=== PATIENT | male | born 1980 | race Caucasian/White ===

== ENCOUNTER 2019-12-19 12:48 | Inpatient (IN) | payer BC ==
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
[2019-12-19 13:32] LABS: ABS Eosinophils 0.1 10^3/ul (0-0.6); ABS Lymphocytes 1.6 10^3/ul (1.0-4.8); ABS Monocytes 0.5 10^3/ul (0-0.8); ABS Neutrophils 4.4 10^3/ul (1.5-7.7); Eosinophil % 0.8 %; Hematocrit 44 % (42-52); Hemoglobin 15.3 g/dL (14.0-18.0); Lymphocyte % 23.9 %; Mean Corpuscular HGB Conc 35 g/dL (31-36); Mean Corpuscular Hemoglobin 30 pg (27-31); Mean Corpuscular Volume 85 fL (80-94); Mean Platelet Volume 8.4 fL (7.4-10.4); Platelet Count 238 10^3/uL (150-450); Red Blood Count 5.14 10^6 /uL (4.18-5.48); Red Cell Distribution Width 13 % (10-15); White Blood Count 6.6 10^3/uL (3.5-10.8)
[2019-12-19 13:35] LABS: Urine Appearance Clear; Urine Bilirubin Negative (Negative); Urine Blood Negative (Negative); Urine Color Yellow; Urine Glucose Negative (Negative); Urine Ketones Negative (Negative); Urine Nitrite Negative (Negative); Urine Protein Negative (Negative); Urine Specific Gravity 1.025 (1.010-1.030); Urine Urobilinogen Negative (Negative)
--- NOTE | 2019-12-19 13:45 | ED ---
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 Patient reports he has Hx of anxiety, OCD, and benign brain tumor and was recently [facility] to the [facility] in [place]. He had some medication changes and was doing well and back at work until yesterday. He has not seen therapist in a few weeks. He states he thought about self harm today by smashing his head, which has never happened before. The patient rates the pain 3/10 in severity. Symptoms aggravated by nothing. Symptoms alleviated by nothing. - History Of Current Complaint Chief Complaint: EDMentalHealth Time Seen by Provider: 12/19/19 13:00 Hx Obtained From: Patient Onset/Duration: Still Present Character: Anxious - and panicked with plan to hurt self Aggravating Factor(s): Nothing Alleviating Factor(s): Nothing - Allergies/Home Medications Allergies/Adverse Reactions: Allergies Allergy/AdvReac Type Severity Reaction Status Date / Time No Known Allergies Allergy Verified 12/19/19 21:12 Home Medications: Home Medications Fluvoxamine (NF) [Luvox (NF)] 100 mg PO BID 12/19/19 [History Confirmed 12/19/19 ] Gabapentin [Neurontin] 200 mg PO BID 12/19/19 [History Confirmed 12/19/19] PMH/Surg Hx/FS Hx/Imm Hx Neurological History: Reports: Hx Headaches Psychiatric History: Reports: Hx Anxiety, Hx Panic Disorder Infectious Disease History: No Infectious Disease History: Denies: Traveled Outside the [place] in Last 30 Days - Family History Known Family History: Positive: Other - Brother has Schizophrenia - Social History Alcohol Use: None Substance Use Type: Reports: None Smoking Status (MU): Never Smoked Tobacco Review of Systems Positive: Headache Positive: Anxious, Other - Panic attack All Other Systems Reviewed And Are Negative: Yes Physical Exam - Summary Physical Exam Summary: Constitutional: Well-developed, Well-nourished, Alert. (-) Distressed Skin: Warm, Dry HENT: Normocephalic; Atraumatic Eyes: Conjunctiva normal Neck: Musculoskeletal ROM normal neck. (-) JVD, (-) Stridor, (-) Tracheal deviation Cardio: Rhythm regular, rate normal, Heart sounds normal; Intact distal pulses; The pedal pulses are 2+ and symmetric. Radial pulses are 2+ and symmetric. (-) Murmur Pulmonary/Chest wall: Effort normal. (-) Respiratory distress, (-) Wheezes, (-) Rales Abd: Soft, (-) tenderness, (-) Distension, (-) Guarding, (-) Rebound Musculoskeletal: (-) Edema Lymph: (-) Cervical adenopathy Neuro: Alert, Oriented x3 Psych: appears anxious, tearful. Triage Information Reviewed: Yes Vital Signs On Initial Exam: Initial Vitals Temp Pulse Resp BP Pulse Ox 98.3 F 95 20 148/124 97 12/19/19 12:51 12/19/19 12:51 12/19/19 12:51 12/19/19 12:51 12/19/19 12:51 Vital Signs Reviewed: Yes Procedures - Sedation Patient Received Moderate/Deep Sedation with Procedure: No Diagnostics - Vital Signs Vital Signs Temp Pulse Resp BP Pulse Ox 12/19/19 12:51 98.3 F 95 20 148/124 97 - Laboratory Lab Results: Lab Results 12/19/19 12/19/19 Range/Units 13:16 13:24 WBC 6.6 (3.5-10.8) 10^3/uL RBC 5.14 (4.18-5.48) 10^6 /uL Hgb 15.3 (14.0-18.0) g/dL Hct 44 (42-52) % MCV 85 (80-94) fL MCH 30 (27-31) pg MCHC 35 (31-36) g/dL RDW 13 (10-15) % Plt Count 238 (150-450) 10^3/uL MPV 8.4 (7.4-10.4) fL Neut % (Auto) 67.7 % Lymph % (Auto) 23.9 % Co[place] % (Auto) 6.9 % Eos % (Auto) 0.8 % Baso % (Auto) 0.7 % Absolute Neuts (auto) 4.4 (1.5-7.7) 10^3/ul Absolute Lymphs (auto) 1.6 (1.0-4.8) 10^3/ul Absolute Monos (auto) 0.5 (0-0.8) 10^3/ul Absolute Eos (auto) 0.1 (0-0.6) 10^3/ul Absolute Basos (auto) 0.0 (0-0.2) 10^3/ul Absolute Nucleated RBC 0.0 10^3/ul Nucleated RBC % 0.0 Urine Color Yellow Urine Appearance Clear Urine pH 7.0 (5-9) Ur Specific [place] 1.025 (1.010-1.030) Urine Protein Negative (Negative) Urine Ketones Negative (Negative) Urine Blood Negative (Negative) Urine Nitrate Negative (Negative) Urine Bilirubin Negative (Negative) Urine Urobilinogen Negative (Negative) Ur Leukocyte Esterase Negative (Negative) Urine Glucose Negative (Negative) Result Diagrams: 12/19/19 13:24 12/19/19 13:24 Lab Statement: Any lab studies that have been ordered have been reviewed, and results considered in the medical decision making process. Course/Dx - Course Course Of Treatment: 58 year old M presenting to [facility] complains of anxiety, panic attacks, and a SINGH from crying since earlier today 12/19/2019. Physical exam findings: Psych: appears anxious, tearful. Bloodwork results with no significant abnormalities except for H BUN/Creatinine Ratio, H Glucose, H Total Bilirubin. In the ED course, the patient was given a MHE. We discussed patient care with Dr. Lucas at 1707 who recommended admission. The patient will be admitted to the psych unit. - Differential Dx/Clinical Impression Provider Diagnosis: Major depressive disorder - Physician Notifications Discussed Care Of Patient With: Christiano Lucas Time Discussed With Above Provider: 17:07 Instructed by Provider To: Admit As Inpatient Discharge ED - Sign-Out/Discharge Documenting (check all that apply): Patient Departure - admit - Discharge Plan Condition: Stable Disposition: PSYCHIATRIC FACILITY-[facility] - Billing Disposition and Condition Condition: STABLE Disposition: Psychiatric Facility [facility] - Attestation Statements Document Initiated by Scribe: Yes Documenting Scribe: Jose Maria Soto Provider For Whom Scribe is Documenting (Include Credential): Eric Rosales DO Scribe Attestation: IJose Maria scribed for Eric Rosales DO on 12/20/19 at 0724. Scribe Documentation Reviewed: Yes Provider Attestation: The documentation as recorded by the scribeJose Maria accurately reflects the service I personally performed and the decisions made by me, Eric Rosales DO Status of Scribe Document: Viewed
[2019-12-19 13:48] LABS: ALT 32 U/L (7-52); AST 22 U/L (13-39); Albumin 4.9 g/dL (3.2-5.2); Albumin/Globulin Ratio 1.7 (1-3); Alkaline Phosphatase 77 U/L (34-104); Anion Gap 9 mmol/L (2-11); BUN/Creatinine Ratio 22.4 (8-20); Blood Urea Nitrogen 24 mg/dL (6-24); CO2 Carbon Dioxide 26 mmol/L (22-32); Calcium 9.8 mg/dL (8.6-10.3); Chloride 105 mmol/L (101-111); EGFR African American 93.1 (>60); EGFR Non-African American 76.9 (>60); Globulin 2.9 g/dL (2-4); Glucose 114 mg/dL (70-100); Potassium 3.9 mmol/L (3.5-5.0); Sodium 140 mmol/L (135-145); Total Protein 7.8 g/dL (6.4-8.9)
[2019-12-19 13:49] LABS: Urine Benzodiazepine Screen None Detected (None Detect); Urine Opiates Screen None Detected (None Detect)
[2019-12-19 14:19] LABS: Acetaminophen < 15 mcg/mL; Alcohol < 10 mg/dL (<10); Salicylate < 2.50 mg/dL (<30)
[2019-12-19 14:34] LABS: TSH (Thyroid Stimulating Horm) 1.05 mcIU/mL (0.34-5.60)
[2019-12-19] MEDS ORDERED: Acetaminophen TAB* 325 MG PO ONE (16:55)
[2019-12-19] MEDS ORDERED: Al Hydrox/Mg Hydrox/Simet LIQ* 30 ML UDC PO PRN (21:21)
[2019-12-19] MEDS: FLUVOXAMINE 100 MG PO SCH (21:39)
[2019-12-20 07:47] LABS: HDL Cholesterol 40.3 mg/dL
[2019-12-20] MEDS: Vitamin THERAPEUTIC TAB PO SCH (08:46)
[2019-12-20] MEDS: Acetaminophen TAB* 325 MG PO PRN (08:46)
[2019-12-20] MEDS: FLUVOXAMINE 100 MG PO SCH (08:47)
[2019-12-20] MEDS: clonazePAM TAB(*) 0.5 MG PO PRN (12:24)
--- NOTE | 2019-12-20 18:02 | HP ---
INITIAL PSYCHIATRIC EVALUATION: DATE OF ADMISSION: TOTAL TIME SPENT FOR THIS EVALUATION: 60 minutes. CHIEF COMPLAINT: "I am having severe anxiety and I am suicidal." HISTORY OF PRESENT ILLNESS: The patient is a 39-year-old male who came voluntarily to [facility] Emergency Department for psychiatric evaluation and medication management. The pat ient reported that he has a history of anxiety since the age of 10. The patient stated that he was s tabilized on fluvoxamine 100 mg p.o. b.i.d. for at least 20 years. The patient stated that shortly a fter his brother was diagnosed with schizophrenia, paranoid type, about 1 week before this presentati on, he suddenly became anxious because he thought that it is genetic and maybe one day he is also goi ng to be diagnosed with schizophrenia. The patient reported severely depressed mood, poor appetite, low energy, crying spells, hopelessness, helplessness, and worthlessness. The patient stated that I just cannot continue like this anymore. I am having severe anxiety with panic attacks. The patient stated that lately he has noticed increase in isolative behavior. He is afraid to even go out to the [facility]. He denied any history of psychosis, paranoia, or ritualistic behavior. The patient did no t exhibit any paranoid delusion or persecutory delusion. The patient stated that lately he has notic ed that he worries excessively and that he has been diagnosed in the past with obsessive-compulsive d isorder. He reported some rituals, which include excessive washing of his hands and excessive tooth brushing. 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 He deny any hist ory of physical, verbal, or emotional abuse. PAST PSYCHIATRIC HISTORY: The patient was also diagnosed with anxiety around the age of 10. As a re sult, he was home schooled and lately he noticed becoming more and more depressed. The patient also stated that he was diagnosed with benign tumor around the age of 11. They found hemangioma around th e left frontal lobe. The patient stated that he has used many SSRIs in the past including Prozac whic h he said he used for about a year, after which it was discontinued because he was not getting jeanine l effect, it was not beneficial, later it was switched over to Paxil. The patient reported that he d iscontinued it because he had problem with libido. The patient stated that he has used fluvoxamine f or at least 20 years and it was effective, but for some reason his physician discontinued it and was started on Effexor which he used for 2 years, but did not work well, so he had to go back to fluvoxam ine because it takes care of his diagnoses including obsessive- compulsive disorder, panic disorder w ith agoraphobia, and depression. The patient denied past history of suicide attempt. He said he has 3 guns and effort was made to contact Christina, telephone number [phone]. She has been notified t o keep this gun under lock and lewis. The patient denied past history of self mutilation but endorse ramya jasso with anger management. The patient stated that he has been following up with An Thorpe. PAST MEDICAL HISTORY: The patient stated that he goes to [facility] for physical issues. He has a hist ory of hemangioma. He denies any history of asthma, diabetes, hypertension, hypothyroidism, or expos ures to HIV, TB, or hepatitis. PAST SURGICAL HISTORY: The patient denies. CURRENT MEDICATIONS ON ADMISSION: Include: 1. Gabapentin 200 mg p.o. b.i.d. 2. Fluvoxamine 100 mg p.o. b.i.d. ALLERGIES: The patient denied any known drug allergies. FAMILY HISTORY: Significant for schizophrenia paranoid type. The patient denied family history of s uicide or drugs. LEGAL HISTORY: The patient around the age of 15 was charged with disorderly conduct, but there was n o group home time. Currently, the patient is not on parole or probation. SUBSTANCE ABUSE HISTORY: The patient started drinking alcohol at the age of 10. He said that he dran k so much until the age of 22 when he suddenly stopped, now he drinks 1 or 2 bottles of beer socially per week and the last time he drank alcohol was 1 month ago. The patient reported 1 episode of nancy kout. Denied any withdrawal symptoms or delirium tremens. The CAGE screen at this time is 0/4. The patient has experimented with other drugs in the past by cocaine only 2 times around the age of 15, mushroom only 1 time around the age of 15. He said he has tried marijuana but it caused anxiety, so he stopped it. The patient currently is not smoking cigarette. He denies intravenous use of any oth er illicit drugs including cocaine, heroin, PCP, LSD, crystal meth, bath salts, K2, and pink. The p atient reported that he has never been to any substance abuse rehabilitation program. SOCIAL HISTORY: The patient was born and raised in [place]. He has a brother who is 42 years old. The brother is currently admitted at [facility] in [place]. The patient went to [employer]. He graduated 12th grade in 1998. 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 He has 2 children ages 10 an d 12. He has a girlfriend with whom he has a 2-year-old daughter. REVIEW OF SYSTEMS: All systems were reviewed. They were all negative except for that discussed und er HPI. PHYSICAL EXAMINATION As of the time of this evaluation, vitals: Temperature is 97.6, pulse is 67, respiratory rate is 14, oxygen saturation is 99. DIAGNOSTIC STUDIES/LAB DATA: The patient's lab results: CBC with differential is within normal ran ge. Comprehensive metabolic panel is within normal range except for elevated BUN/creatinine ratio wh ich is 22.4. The glucose is also slightly elevated at 114. Total bilirubin is 1.30. Urine drug scr een is negative. The urinalysis is negative for leukocytes and nitrites. MENTAL STATUS EXAM: The patient is alert and oriented to person, place, situation, and time. He is appropriately dressed and maintain fair eye contact. His speech is spontaneous with low rate and vol ume. Thought process is linear, coherent, and goal-directed. He denied current suicidal or homicida l ideation, but before this admission, the patient stated that he was feeling suicidal with plan to b shilo his head against the wall. The patient's insight and judgment are fair. Cognitively, both recen t and remote memory are intact. There is no evidence of tangentiality or circumstantiality. Mood, h e described as severely depressed and anxious. Affect is blunted. The patient was actually exhibiti ng crying spell during this evaluation. There was no evidence of abnormal involuntary movement. Imp ulse control is fair. Language is intact. Gait is stable. Attention and concentration are fair. PSYCHIATRIC DIAGNOSES: 1. Major depressive disorder, recurrent, severe, without psychotic features. 2. Panic disorder with agoraphobia. 3. Obsessive compulsive disorder. SUBSTANCE ABUSE DIAGNOSIS AT THIS TIME: None. MEDICAL DIAGNOSIS: History of hemangioma. ASSESSMENT: The patient is a 39-year-old male who presented to [facility] ER fo r psychiatric evaluation and medication management. The patient is severely depressed and experienci ng severe anxiety, suicidal on presentation with plan to bash his head against the wall. PLAN: The patient will be admitted to [facility] BSU. He will be monitored on a daily ba sis. The patient will be started on BuSpar 5 mg p.o. b.i.d. for anxiety, Klonopin 0.5 mg p.o. b.i.d. p.r.n. for anxiety, fluvoxamine will be increased from 100 mg to 150 p.o. b.i.d. for mood and anxiet y, gabapentin will be discontinued because the patient reported that he tends to feel severely sedate d on gabapentin. Risk and benefit of this medication have been discussed with the patient and the windy kearns indicated understanding. The patient has been counseled to notify staff if he feels suicidal o r homicidal. The patient is encouraged to go to groups. The problem list for this patient includes anxiety, risk of suicide, depression, poor impulse control , and risk of substance abuse. This problem list will be treated with both medication management and psychotherapy. [id number]/[facility] #: [id number]
[2019-12-20] MEDS: busPIRone TAB* 5 MG PO SCH (21:04)
[2019-12-21] MEDS ORDERED: FluvoxaMINE (NF) 50 MG TAB PO SCH (09:00)
[2019-12-21] MEDS: busPIRone TAB* 5 MG PO SCH ×2 (09:07→21:08)
[2019-12-21] MEDS: Vitamin THERAPEUTIC TAB PO SCH (09:08)
[2019-12-21] MEDS: Acetaminophen TAB* 325 MG PO PRN (09:56)
[2019-12-21] MEDS: FluvoxaMINE (NF) 50 MG TAB PO SCH (21:09)
[2019-12-22] MEDS: Vitamin THERAPEUTIC TAB PO SCH (08:59)
[2019-12-22] MEDS: clonazePAM TAB(*) 0.5 MG PO PRN (08:59)
[2019-12-22] MEDS: FluvoxaMINE (NF) 50 MG TAB PO SCH ×2 (09:00→20:44)
[2019-12-22] MEDS: busPIRone TAB* 5 MG PO SCH (09:00)
--- NOTE | 2019-12-22 13:40 | PN ---
Subjective - Subjective Date of Service: 12/22/19 Service Type: 11082 Hosp care 25 min moderate complexity Subjective: Lan is met after a group. He presents as dysphoric and makes intermittent eye contact. He reiterates the history from the H&P and adds that mornings are a hard time for him regarding anxiety. He feels pain in his chest and stomach that almost make him cry. Toward evening, the feeling in his chest and stomach subsides and he develops headaches due to anxiety and worry. He sometimes wonders, "Why me?" and "What if something is really wrong?" An example of this is when there was information about HIV on television, he became concerned that he had contracted it although he had no engaged in any practices that would put him at risk. He stated he felt better when he got the negative results. Objective - General Observations Appearance: Neat Appears Stated Age: Yes Stature: Overweight Posture: WNL Eye Contact: Intermittent Behavior/Activity: Slowed - Interaction Observations Attitude Towards Examiner: Cooperative, Anxious Stated Mood: Dysphoric Affect: Blunted Speech Pattern/Tone: Clear, Appropriate, Quiet Volume Thought Process: Coherent, Goal Directed Perception: WNL Thought Content: Preoccupation/Ruminations, Obsessional, Depressive, Self- Deprecatory Thought Process: Lethality: Passive Wish Hallucination Type: None Delusion Type: None - Cognitive Function Orientation: A&O x 4 Level of Consciousness: Awake, Alert, Appropriate Cognition: Impaired Cognition, Impaired Fund of Knowledge Estimated Intelligence: Normal Insight: WNL Judgment Within Normal Limits: No Ability to Make Reasonable Decisions: Moderately Impaired - Medication Compliance Cooperative with Inpatient Medication Regimen: Yes - Group Participation Participates in Group Activities: Yes Assessment - Assessment Merits Inpatient Hospitalization: For Immediate Safety Inpatient DSM-V Dx: F33.1 Clinical Impression: Lan is a 39-year-old man who is diagnosed with major depressive disorder and comes to the hospital due to suicidal thoughts that relate to insurmountable anxiety and panic, some attacks which last hours. BSU: Problem List - Patient Problems (1) Major depressive disorder, recurrent episode, moderate degree Current Visit: Yes Status: Acute Code(s): F33.1 - MAJOR DEPRESSIVE DISORDER , RECURRENT, MODERATE SNOMED Code(s): 493857597 Plan - Plan Treatment Plan: Name: LAN ERWIN Birthdate: 1980 [id number] Continue Lan's medications as they are (Luvox 150 mg BID) but discontinue Buspar. Start Risperdal 0.5 mg and clonidine 0.1 mg. He has tried Abilify in the past, but he got akathesia. In the meantime, he got slightly better. Clonidine is being started to reduce panic, nightmares, and anxiety. Continued Medication Management: Different Medication Medications: Current Medications Acetaminophen (Tylenol Tab*) 650 mg PO Q4H PRN PRN Reason: PAIN or TEMP > 101 F Last Admin: 12/21/19 09:56 Dose: 650 mg Al Hydrox/Mg Hydrox/Simethicone (Maalox Plus*) 30 ml PO Q4H PRN PRN Reason: INDIGESTION Clonazepam (Klonopin Tab(*)) 0.5 mg PO TID [facility] Clonidine HCl (Catapres Tab*) 0.1 mg PO BEDTIME [facility] Fluvoxamine Maleate (Fluvoxamine (Nf)) 150 mg PO BID [facility] Last Admin: 12/22/19 09:00 Dose: 150 mg Multivitamins (Theragran Tab*) 1 tab PO DAILY [facility] Last Admin: 12/22/19 08:59 Dose: 1 tab Risperidone (Risperdal) 0.5 mg PO BEDTIME [facility] - Discharge Plan Discharge Plan: Outpatient Follow Up
[2019-12-22] MEDS: clonazePAM TAB(*) 0.5 MG PO SCH ×2 (14:20→20:48)
--- NOTE | 2019-12-22 14:42 | HP ---
HISTORY AND PHYSICAL: DATE OF ADMISSION: 12/19/19 ADDENDUM: PHYSICAL EXAMINATION Please refer to ED note. [id number]/[facility] #: [id number]
[2019-12-22] MEDS ORDERED: cloNIDine TAB* 0.1 MG PO SCH (21:00)
[2019-12-23] MEDS: FluvoxaMINE (NF) 50 MG TAB PO SCH ×2 (08:36→21:12)
[2019-12-23] MEDS: Vitamin THERAPEUTIC TAB PO SCH (08:36)
[2019-12-23] MEDS: clonazePAM TAB(*) 0.5 MG PO SCH ×3 (08:36→21:11)
--- NOTE | 2019-12-23 16:01 | PN ---
Subjective - Subjective Date of Service: 12/23/19 Service Type: 65077 Hosp care 35 min high complexity Subjective: Lan reported feeling "drunk" last night with the addition of clonidine and risperidone. We will discontinue the clonidine. Much time was spent with Lan discussing his appreciation of Klonopin's utility and also the possibilities of tolerance and dependence. He is using it only once per day because of that. We talk about anxiety and how physical sensations that are unusual cause anxiety for him. He was given the challenge to simulate a wobbly sensation or some kind of mild discomfort and discover ways that he can combat low level anxiety. He says his depressed feelings are reduced in the hospital and he is feeling increased motivation. He has been going to all the groups. Objective - General Observations Appearance: Neat Appears Stated Age: Yes Stature: Overweight Posture: WNL Eye Contact: Average Behavior/Activity: Slowed - Interaction Observations Stated Mood: Dysphoric, Anxious Affect: Blunted Speech Pattern/Tone: Clear, Appropriate, Quiet Volume Thought Process: Coherent, Goal Directed Perception: WNL Thought Content: Preoccupation/Ruminations, Self-Deprecatory Thought Process: Lethality: Passive Wish Hallucination Type: None Delusion Type: None - Cognitive Function Orientation: A&O x 4 Level of Consciousness: Awake, Alert, Appropriate Cognition: Impaired Attention/Concentration Estimated Intelligence: Normal Insight: WNL Judgment Within Normal Limits: No Ability to Make Reasonable Decisions: Mildly Impaired - Medication Compliance Cooperative with Inpatient Medication Regimen: Yes - Group Participation Participates in Group Activities: Yes Assessment - Assessment Merits Inpatient Hospitalization: For Immediate Safety Inpatient DSM-V Dx: F33.1 Clinical Impression: Lan is a 39-year-old man who is diagnosed with major depressive disorder and comes to the hospital due to suicidal thoughts that relate to insurmountable anxiety and panic, some attacks which last hours. BSU: Problem List - Patient Problems (1) Major depressive disorder, recurrent episode, moderate degree Current Visit: Yes Status: Acute Code(s): F33.1 - MAJOR DEPRESSIVE DISORDER , RECURRENT, MODERATE SNOMED Code(s): 169038573 Plan - Plan Treatment Plan: Name: LAN ERWIN Birthdate: 1980 [id number] Continue Lan's medications as they are (Luvox 150 mg BID) but discontinue Buspar. Start Risperdal 0.5 mg and clonidine 0.1 mg. He has tried Abilify in the past, but he got akathesia. In the meantime, he got slightly better. Clonidine is being started to reduce panic, nightmares, and anxiety. 12/23/2019 Discontinue clonidine. Continue medications as they are. Encourage exploration of anxious ideas and coping strategies. Encourage current good practices. Medications: Current Medications Acetaminophen (Tylenol Tab*) 650 mg PO Q4H PRN PRN Reason: PAIN or TEMP > 101 F Last Admin: 12/21/19 09:56 Dose: 650 mg Al Hydrox/Mg Hydrox/Simethicone (Maalox Plus*) 30 ml PO Q4H PRN PRN Reason: INDIGESTION Clonazepam (Klonopin Tab(*)) 0.5 mg PO TID [facility] Last Admin: 12/23/19 14:04 Dose: Not Given Fluvoxamine Maleate (Fluvoxamine (Nf)) 150 mg PO BID [facility] Last Admin: 12/23/19 08:36 Dose: 150 mg Multivitamins (Theragran Tab*) 1 tab PO DAILY [facility] Last Admin: 12/23/19 08:36 Dose: 1 tab Risperidone (Risperdal) 0.5 mg PO BEDTIME [facility] Last Admin: 12/22/19 20:43 Dose: 0.5 mg - Discharge Plan Discharge Plan: Outpatient Follow Up
[2019-12-24] MEDS: Vitamin THERAPEUTIC TAB PO SCH (08:26)
[2019-12-24] MEDS: FluvoxaMINE (NF) 50 MG TAB PO SCH ×2 (08:27→20:40)
[2019-12-24] MEDS: clonazePAM TAB(*) 0.5 MG PO SCH ×3 (08:27→20:39)
--- NOTE | 2019-12-24 11:24 | PN ---
BSU: Group Therapy Note - Service Type Service Type: 02393 Group Psychotherapy - Cognitive Behavioral Group Therapy ( CBT):Patient was attentive and participatory in CBT programming this morning, and remained in good behavioral control. Patient expressed positive insights regarding relevant treatment interventions and goals.
--- NOTE | 2019-12-24 16:50 | PN ---
Subjective - Subjective Date of Service: 12/24/19 Service Type: 56187 Hosp care 25 min moderate complexity Subjective: Lan talks about feeling better although he acknowledges that he worries that his better feelings will revert to the way he used to feel--the crushing chest and abdominal pain. He discusses how he seeks reassurances from his medical providers when he feels anxious, as his anxiety frequently manifests itself somatically. He sees that he seeks control over his anxiety rather than tolerate it or calm himself. He is showing increased smiles and relaxation. He is looking forward to seeing his family on Sunday and is finding the groups helpful. Objective - General Observations Appearance: Neat Appears Stated Age: Yes Stature: Overweight Posture: WNL Eye Contact: Average Behavior/Activity: WNL - Interaction Observations Attitude Towards Examiner: Cooperative, Anxious Stated Mood: Dysphoric, Anxious Affect: Blunted Speech Pattern/Tone: Clear, Appropriate, Normal Volume Thought Process: Coherent, Goal Directed Perception: WNL Thought Content: Preoccupation/Ruminations, Obsessional Hallucination Type: None Delusion Type: None - Cognitive Function Orientation: A&O x 4 Level of Consciousness: Awake, Alert, Appropriate Cognition: Impaired Attention/Concentration Estimated Intelligence: Normal Insight: WNL Judgment Within Normal Limits: No Ability to Make Reasonable Decisions: Moderately Impaired - Medication Compliance Cooperative with Inpatient Medication Regimen: Yes - Group Participation Participates in Group Activities: Yes Assessment - Assessment Merits Inpatient Hospitalization: For Immediate Safety, For Stabilization Inpatient DSM-V Dx: F33.1 Clinical Impression: Lan is a 39-year-old man who is diagnosed with major depressive disorder and comes to the hospital due to suicidal thoughts that relate to insurmountable anxiety and panic, some attacks which last hours. BSU: Problem List - Patient Problems (1) Major depressive disorder, recurrent episode, moderate degree Current Visit: Yes Status: Acute Code(s): F33.1 - MAJOR DEPRESSIVE DISORDER , RECURRENT, MODERATE SNOMED Code(s): 865643765 Plan - Plan Treatment Plan: Name: LAN ERWIN Birthdate: 1980 [id number] Continue Lan's medications as they are (Luvox 150 mg BID) but discontinue Buspar. Start Risperdal 0.5 mg and clonidine 0.1 mg. He has tried Abilify in the past, but he got akathesia. In the meantime, he got slightly better. Clonidine is being started to reduce panic, nightmares, and anxiety. 12/23/2019 Discontinue clonidine. Continue medications as they are. Encourage exploration of anxious ideas and coping strategies. Encourage current good practices. 12/24/2019 Continue medications. Continue group therapy and further therapeutic interventions. Medications: Current Medications Acetaminophen (Tylenol Tab*) 650 mg PO Q4H PRN PRN Reason: PAIN or TEMP > 101 F Last Admin: 12/21/19 09:56 Dose: 650 mg Al Hydrox/Mg Hydrox/Simethicone (Maalox Plus*) 30 ml PO Q4H PRN PRN Reason: INDIGESTION Clonazepam (Klonopin Tab(*)) 0.5 mg PO TID [facility] Last Admin: 12/24/19 14:53 Dose: Not Given Fluvoxamine Maleate (Fluvoxamine (Nf)) 150 mg PO BID [facility] Last Admin: 12/24/19 08:27 Dose: 150 mg Multivitamins (Theragran Tab*) 1 tab PO DAILY [facility] Last Admin: 12/24/19 08:26 Dose: 1 tab Risperidone (Risperdal) 0.5 mg PO BEDTIME [facility] Last Admin: 12/23/19 21:13 Dose: 0.5 mg
[2019-12-25] MEDS: Vitamin THERAPEUTIC TAB PO SCH (08:50)
[2019-12-25] MEDS: FluvoxaMINE (NF) 50 MG TAB PO SCH ×2 (08:50→21:18)
[2019-12-25] MEDS: clonazePAM TAB(*) 0.5 MG PO SCH ×3 (08:50→21:18)
--- NOTE | 2019-12-25 23:18 | PN ---
Subjective - Subjective Date of Service: 12/25/19 Service Type: 37532 Hosp care 15 min low complexity Subjective: Lan discusses that Klonopin TID is too much. He much prefers taking 0.5 mg in the morning with the option to take it at bedtime. He states he's had it prescribed before and has thrown away the extra as he didn't use it. He says that taking Klonopin in the morning helps him feel good throughout the day. When he takes it at bedtime, he sleeps better and has no crushing feeling in the morning. We discuss that it needs to be used as a tool to help him manage his anxiety rather than relying on it to make the anxiety go away. Objective - General Observations Appearance: Neat Stature: Overweight Posture: WNL Eye Contact: Intermittent Behavior/Activity: WNL - Interaction Observations Attitude Towards Examiner: Cooperative, Anxious Stated Mood: Dysphoric Affect: Blunted Speech Pattern/Tone: Clear, Appropriate, Normal Volume Thought Process: Coherent Perception: WNL Thought Content: Preoccupation/Ruminations, Self-Deprecatory Hallucination Type: None Delusion Type: None - Cognitive Function Orientation: A&O x 4 Level of Consciousness: Awake, Alert, Appropriate Cognition: WNL Estimated Intelligence: Normal Insight: WNL Judgment Within Normal Limits: Yes - Medication Compliance Cooperative with Inpatient Medication Regimen: Yes - Group Participation Participates in Group Activities: Yes Assessment - Assessment Merits Inpatient Hospitalization: For Immediate Safety Inpatient DSM-V Dx: F33.1 Clinical Impression: Lan is a 39-year-old man who is diagnosed with major depressive disorder and comes to the hospital due to suicidal thoughts that relate to insurmountable anxiety and panic, some attacks which last hours. He is progressing well with medication support and the use of group and milieu therapy. BSU: Problem List - Patient Problems (1) Major depressive disorder, recurrent episode, moderate degree Current Visit: Yes Status: Acute Code(s): F33.1 - MAJOR DEPRESSIVE DISORDER , RECURRENT, MODERATE SNOMED Code(s): [id number] Plan - Plan Treatment Plan: Name: LAN ERWIN Birthdate: 1980 [id number] Continue Lan's medications as they are (Luvox 150 mg BID) but discontinue Buspar. Start Risperdal 0.5 mg and clonidine 0.1 mg. He has tried Abilify in the past, but he got akathesia. In the meantime, he got slightly better. Clonidine is being started to reduce panic, nightmares, and anxiety. 12/23/2019 Discontinue clonidine. Continue medications as they are. Encourage exploration of anxious ideas and coping strategies. Encourage current good practices. 12/24/2019 Continue medications. Continue group therapy and further therapeutic interventions. 12/25/2019 Prepare for discharge tomorrow. Encourage continued work on anxiety and depression as well as forming positive alliances. Medications: Current Medications Acetaminophen (Tylenol Tab*) 650 mg PO Q4H PRN PRN Reason: PAIN or TEMP > 101 F Last Admin: 12/21/19 09:56 Dose: 650 mg Al Hydrox/Mg Hydrox/Simethicone (Maalox Plus*) 30 ml PO Q4H PRN PRN Reason: INDIGESTION Clonazepam (Klonopin Tab(*)) 0.5 mg PO TID [facility] Last Admin: 12/25/19 21:18 Dose: 0.5 mg Fluvoxamine Maleate (Fluvoxamine (Nf)) 150 mg PO BID [facility] Last Admin: 12/25/19 21:18 Dose: 150 mg Multivitamins (Theragran Tab*) 1 tab PO DAILY [facility] Last Admin: 12/25/19 08:50 Dose: 1 tab Risperidone (Risperdal) 0.5 mg PO BEDTIME [facility] Last Admin: 12/25/19 21:19 Dose: 0.5 mg - Discharge Plan Discharge Plan: Outpatient Follow Up
[2019-12-26 08:43] VITALS: BP 131/83
[2019-12-26] MEDS: clonazePAM TAB(*) 0.5 MG PO SCH (08:49)
[2019-12-26] MEDS: Vitamin THERAPEUTIC TAB PO SCH (08:49)
[2019-12-26] MEDS: FluvoxaMINE (NF) 50 MG TAB PO SCH (11:08)
--- NOTE | 2019-12-26 12:06 | PN ---
BSU: Group Therapy Note - Service Type Service Type: 90540 Group Psychotherapy - Cognitive Behavioral Group Therapy ( CBT):Patient was attentive and participatory in CBT programming this morning, and remained in good behavioral control. Patient expressed positive insights regarding relevant treatment interventions and goals.
--- NOTE | 2019-12-26 15:03 | CONS ---
PSYCHOLOGICAL REPORT: DATE OF CONSULTATION: 12/25/19 PROCEDURE CODE: [id number] REASON FOR REFERRAL: Lan was referred for psychological testing secondary to concerns regarding the severity of depression and if he experiences any psychotic range disturbances or hypomania. TEST ADMINISTERED: Lan completed the [place] Multiphasic Personality Inventory - II (MMPI-II), and was given feedback regarding testing results in individual conversation. Lan was also seen in the context of cognitive behavioral group psychotherapy led by this feature writer throughout his weeklong stay. RELEVANT HISTORY: Lan is a 39-year-old male who currently lives with his girlfriend of approximately 4 years with whom he has a 2-year-old child. Lan is also the father of 10- and 12-year-old boys he had with his ex- . He describes splitting custody with his ex- in a "50:50" arrangement with the children switching homes. He provides them with child support. Although he describes good co-parenting relationship with his ex-, he recently had to go to court to resolve some differences. He described being successful in mediation in this regard. 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 However, he has been on leave there for approximately 5 months' time secondary to his difficulties with depression and anxiety. He describes hopes of returning to work successfully within the next month's time. Lan describes struggling historically with recurrent depression characterized by very intense experiences with anxiety. He reports obsessive thoughts and some ritualistic behavior, mostly centering around concerns regarding safety for his children as well as himself. He describes doing some odd ritualistic behavior such as turning knobs or turning lights on and off in a certain sequence with hopes that that will enhance safety. He also recounted how on at least one occasion, he took the heating element out of his oven for a fear that it was going to catch fire. Although Lan presents as having good insight that this is unusual behavior and by and large not necessary, he feels the compulsion to do so is overwhelming at times. Lan describes prior inpatient treatment through [facility] in [place] and also recently describes concerns that he might experience paranoid psychosis as his brother has recently been diagnosed as being paranoid, schizophrenic and also is currently being treated at [facility] in [place]. Lan presently describes good social and emotional supports with his girlfriend who works through [employer]. He has been compliant with unit routine and recommended medications and evaluations and describes steady improvement throughout his weeklong stay. Presently, he is future oriented and looking forward to discharge. TEST RESULTS: Lan provides valid protocol on this administration of the MMPI- II. Feedback discussion observed that his low score on emotional stressor scale was felt to be very positive prognostic feature as he impresses as having reasonable emotional coping resources and good self-esteem. That said, he elevates the depression scale and the anxiety scale in a significant fashion (T = 75), and has a spike on the paranoia scale (T = 85). These scores are coupled with a very low score occurring on the hypomania scale (T = 38). Feedback described how his depression and anxiety index are endorsed n similar levels with his very low score occurring on the hypomania scale often reflective of vegetative symptoms incurred with a major depressive episode. Lan related how he has struggled periodically with intense depressive episodes characterized by suicidal thoughts and intrusive thinking about self-harm, describing how he feels the encroaching winter weather often seems to precipitate these periods. He also describes panic attacks with the latest one that began the series of difficulties occurring while at work at [employer]. Hence , he is concerned about his prospects of successful return there, but endorses very good work adjustment, both in terms of purpose and enjoyment of the work process there. IMPRESSION AND RECOMMENDATIONS: Lan impresses as a very good psychotherapy candidate as he impresses as having good insights regarding the nature and seriousness of his symptoms. Although he denies any santiago psychotic experiences , he does express concerns about his ritualistic behaviors and obsessive compulsive thoughts at times. However, he does describe that these seem to remit when doing better and presently describes good adjustment to the recommended medications, which include an antidepressant, an antianxiety agent as well as low titration of atypical antipsychotic. It is hoped these provide calming restorative neurological function for Lan and he is agreeable to engage in outpatient treatment for further cognitive behavioral skills. Lan impresses as being very perceptive and able to discuss relevant thoughts and experiences in an open and honest fashion. Major depressive disorder, severe without psychosis or agarophobia. [id number]/[facility] #: [id number] [facility] HOSPITALBetty
[2019-12-26] MEDS ORDERED: risperiDONE TAB* 1 MG PO SCH (21:00)
--- NOTE | 2019-12-30 02:01 | DS ---
DISCHARGE SUMMARY: DATE OF ADMISSION: 12/19/19 DATE OF DISCHARGE: 12/26/19 PROVIDER: Maria uGadalupe Villegas NP in Psychiatry. SUPERVISING PHYSICIAN: Dr. Christiano Lucas.* (DICTATED BY MARIA GUADALUPE VILLEGAS NP) DIAGNOSES: 1. Major depressive disorder. 2. Generalized anxiety disorder. 3. Obsessive compulsive disorder. CONDITION AT THE TIME OF DISCHARGE: Improved. Psychiatrically cleared, stable. Lan participated in groups. He was social with peers. His , Christina , is agreeable to discharge. Lan is also eager for discharge. He has done well here psychiatrically. He tolerated new medications well and the restart and increase of Luvox well. He will be attending [facility] and is also referred by himself to Dr. Raphael Mcnulty, PHD. MENTAL STATUS EXAM: At the time of discharge, Lan is calm, cooperative, and he makes good eye contact. He is alert and oriented x4. His grooming is good. His speech pace is normal. His thought processes are logical. He is not psychotic or delusional. He denies AH, VH, SI, and HI. Insight and judgment are good. He is willing to follow up and he is urged to see a therapist. DISCHARGE INSTRUCTIONS TO THE PATIENT: A. Medications: 1. Klonopin 0.5 b.i.d. p.r.n. anxiety. 2. Fluvoxamine 150 mg b.i.d. 3. Risperidone 0.5 mg at bedtime. These medications were sent to [facility] in [place], [place]. B. Diet is regular. C. Activities as tolerated. Lan is a nonsmoker. There are no studies pending at the time of discharge. D. Followup care: He has an appointment on 12/31/19 at 10:[address] Covington at [facility] [address] [place], [place], Fax #. He is referred to [facility]. He has an appointment on 12/31/19 at 3 p.m. with An. He has an appointment on 01/19/20 at 3:30 with Holly, a nurse practitioner. He also has an appointment with Dr. Raphael Mcnulty on 01/05/20 at 2 p.m. E. Disposition: Lan is being discharged to his home with his family. F. Substance abuse followup is not indicated. HOSPITAL COURSE: Part A: Chief complaint: "I'm having severe anxiety and I'm suicidal." The patient is a 39-year-old male who came voluntarily to [facility] Emergency Department for psychiatric evaluation and medication management. The patient reported that he had a history of anxiety since the age of 10. The patient stated that he was stabilized on fluvoxamine p.o. b.i.d. for at least 20 years. The patient stated that shortly after his brother was diagnosed with schizophrenia about 1 week before this presentation, he suddenly became anxious because he thought it is genetic and may be 1 day he was going to be diagnosed with schizophrenia. The patient reported severely depressed mood, poor appetite, low energy, crying spells, hopelessness, helplessness, and worthlessness. The patient stated that he cannot continue like this anymore. He is having severe anxiety with panic attacks. Lan stated that lately he has noticed increased isolative behavior. He is afraid to even go out to [employer]. He denied any history of psychosis, paranoia, or ritualistic behavior. The patient did not exhibit any paranoid delusions or persecutory delusions. The patient stated that lately he has noticed that he worries excessively and that he has been diagnosed in the past with obsessive compulsive disorder. He reported some rituals, which include excessive washing of his hands and excessive tooth brushing. 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 He denies any history of physical, verbal, or emotional abuse. Part B: Psychiatric treatment was rendered: Lan was admitted to the adult behavior health unit and placed on 15-minute checks for safety. He advanced to 30- minute checks and staff pass privileges. Lan did well on the unit. He had his Luvox increased to 150 mg b.i.d. Temporarily, his Klonopin was increased to 0.5 t.i.d., but he felt like that was too sedating and also worried that because it is a controlled substance he might become addicted to it. Therefore, it was reduced to b.i.d. dosing and he took the dose in the morning almost exclusively with an occasional taking of Klonopin at bedtime when he was experiencing insomnia. We started Risperdal 0.5 at bedtime. We also attempted to start clonidine 0.1 mg at bedtime. The clonidine proved to cause dizziness and feeling of instability that caused panic. We discontinued it. The Risperdal was well tolerated. He had tried Abilify in the past but he got akathisia. Still he did get slightly better on Abilify at a previous hospitalization, thus the decision to go with the antipsychotic Risperdal was supported by his own experiences. We encouraged him to explore his anxious ideas and to continue looking at new and different coping strategies. He was also encouraged to continue the current good practices. On 12/24/19, we did continue his medications with no change. We encouraged him to continue with group therapy, which he stated he found very helpful and engage in other therapeutic interventions. On 12/25/19, the day before discharge, we encouraged him to prepare for the coming discharge. He was working on his anxiety and depression problems and forming positive alliances with other staff and patient. He is on an antipsychotic, that is, Risperdal 0.5, so it should be noted that his hemoglobin A1c is 6.0%, which is slightly high. His triglycerides are 114, cholesterol 194, LDL cholesterol 131, HDL cholesterol 40.3. Incidentally, TSH is 1.05. We did have a family meeting with his , Christina. It went very well. They are both delighted that he is coming home. They are both eager to see him with his children and that is one of the most encouraging motivations that he had while he was on the unit, that is to see his children. No consults were entered for Lan. He is much improved. His depression is somewhat lifted, a very fine face was replaced with some occasional smiles. He made better eye contact and his desperation was relieved. His anxiety was reduced as well. We did not achieve full remission of anxiety or depressive symptoms but he was satisfied with his results. We wish Lan well in the future. MARIA GUADALUPE VILLEGAS, MARGOT [id number]/[facility] #: [id number] [place]
== END 2019-12-26 13:00 | disposition home or self-care (01) | DRG 751 ==
LOC: ED 12:48 → BSU 19:20
PROVIDERS: ADMIT Psychiatry & Neurology Psychiatry; ATTEND Psychiatry & Neurology Psychiatry
PROC: GZHZZZZ Group Psychotherapy (ICD-10-PCS; principal; 2019-12-24)
DX: F33.1 Major depressive disorder, recurrent, moderate (principal); R45.851 Suicidal ideations; F40.01 Agoraphobia with panic disorder; F42.9 Obsessive-compulsive disorder, unspecified; Z28.21 Immunization not carried out because of patient refusal; Z79.899 Other long term (current) drug therapy
CPT/HCPCS: 36415; 80053; 80061; 80307; 80320; 80329; 81003; 83036; 84443; 85025; 90853; 99222; 99232; 99233; 99238; 99285; A9270-GY; G0480

== ENCOUNTER 2021-02-05 11:24 | Inpatient (IN) ==
[2021-02-05 12:20] LABS: Urine Appearance Clear; Urine Bilirubin Negative (Negative); Urine Blood Negative (Negative); Urine Color Yellow; Urine Glucose Negative (Negative); Urine Ketones Trace (Negative); Urine Nitrite Negative (Negative); Urine Protein Negative (Negative); Urine Specific Gravity 1.019 (1.010-1.030); Urine Urobilinogen Negative (Negative)
[2021-02-05 12:40] LABS: Urine Benzodiazepine Screen None Detected (None Detect); Urine Cannabinoids Screen None Detected (None Detect); Urine Opiates Screen None Detected (None Detect)
[2021-02-05 12:54] LABS: ABS Eosinophils 0.1 10^3/ul (0-0.6); ABS Lymphocytes 1.6 10^3/ul (1.0-4.8); ABS Monocytes 0.4 10^3/ul (0-0.8); Eosinophil % 2.1 %; Hematocrit 43 % (42-52); Hemoglobin 14.4 g/dL (14.0-18.0); Lymphocyte % 31.8 %; Mean Corpuscular HGB Conc 34 g/dL (31-36); Mean Corpuscular Hemoglobin 29 pg (27-31); Mean Corpuscular Volume 87 fL (80-94); Mean Platelet Volume 8.9 fL (7.4-10.4); Platelet Count 219 10^3/uL (150-450); Red Blood Count 4.96 10^6 /uL (4.18-5.48); Red Cell Distribution Width 13 % (10-15); White Blood Count 5.2 10^3/uL (3.5-10.8)
[2021-02-05 13:06] LABS: ALT 15 U/L (7-52); AST 17 U/L (13-39); Albumin/Globulin Ratio 1.8 (1-3); Alkaline Phosphatase 64 U/L (34-104); Anion Gap 8 mmol/L (2-11); BUN/Creatinine Ratio 21.8 (8-20); Blood Urea Nitrogen 24 mg/dL (6-24); CO2 Carbon Dioxide 24 mmol/L (22-32); Calcium 9.6 mg/dL (8.6-10.3); Chloride 105 mmol/L (101-111); EGFR African American 89.7 (>60); EGFR Non-African American 74.1 (>60); Globulin 2.8 g/dL (2-4); Glucose 101 mg/dL (70-100); Sodium 137 mmol/L (135-145); Total Protein 7.8 g/dL (6.4-8.9)
[2021-02-05 13:29] LABS: Acetaminophen < 15 mcg/mL; Alcohol, S < 10 mg/dL (<10); Salicylate < 2.50 mg/dL (<30)
[2021-02-05 13:44] LABS: TSH Ultra Thyroid Stim Horm 1.61 mcIU/mL (0.34-5.60)
[2021-02-05] MEDS ORDERED: Al Hydrox/Mg Hydrox/Simet LIQ 30 ML UDC PO PRN (14:45)
[2021-02-05] MEDS: Vitamin THERAPEUTIC TAB PO SCH (19:35)
[2021-02-06] MEDS: Vitamin THERAPEUTIC TAB PO SCH (11:54)
[2021-02-06] MEDS: CMCS:ClomiPRAMINE 25 mg TAB (NF) PO SCH (12:03)
[2021-02-07] MEDS: CMCS:ClomiPRAMINE 25 mg TAB (NF) PO SCH (08:31)
[2021-02-07] MEDS: Vitamin THERAPEUTIC TAB PO SCH (08:32)
[2021-02-07] MEDS ORDERED: Gadoteridol (CONTRAST) 279.3 MG/ML 10 ML IV ONE (19:06)
[2021-02-08] MEDS: CMCS:ClomiPRAMINE 25 mg TAB (NF) PO SCH (08:01)
[2021-02-08] MEDS: Vitamin THERAPEUTIC TAB PO SCH (08:01)
[2021-02-08] MEDS ORDERED: CLOMIPRAMINE 25 MG PO ONE (10:23)
[2021-02-09] MEDS: Vitamin THERAPEUTIC TAB PO SCH (08:14)
[2021-02-09] MEDS ORDERED: CMCS: ClomiPRAMINE 25 mg TAB (NF) PO SCH (09:00)
[2021-02-09] MEDS ORDERED: CLOMIPRAMINE 25 MG PO SCH (09:00)
[2021-02-09] MEDS ORDERED: CMCS: ClomiPRAMINE 25 mg TAB (NF) PO ONE (11:45)
[2021-02-10 08:21] LABS: HDL Cholesterol 39.4 mg/dL
[2021-02-10] MEDS: Vitamin THERAPEUTIC TAB PO SCH (08:35)
[2021-02-10] MEDS: CMCS: ClomiPRAMINE 25 mg TAB (NF) PO SCH (08:37)
[2021-02-10] MEDS ORDERED: CLOMIPRAMINE 25 MG PO SCH (09:00)
[2021-02-11] MEDS: CMCS: ClomiPRAMINE 25 mg TAB (NF) PO SCH (08:20)
[2021-02-11] MEDS: Vitamin THERAPEUTIC TAB PO SCH (08:20)
[2021-02-12] MEDS: CMCS: ClomiPRAMINE 25 mg TAB (NF) PO SCH (08:18)
[2021-02-12] MEDS: Vitamin THERAPEUTIC TAB PO SCH (08:19)
[2021-02-13] MEDS: CMCS: ClomiPRAMINE 25 mg TAB (NF) PO SCH (07:51)
[2021-02-13] MEDS: Vitamin THERAPEUTIC TAB PO SCH (08:11)
[2021-02-13] MEDS: diPHENhydraMINE 25 mg TAB PO PRN (20:49)
[2021-02-14] MEDS: CMCS: ClomiPRAMINE 25 mg TAB (NF) PO SCH (09:02)
[2021-02-14] MEDS: Vitamin THERAPEUTIC TAB PO SCH (09:03)
[2021-02-15] MEDS: CMCS: ClomiPRAMINE 25 mg TAB (NF) PO SCH (08:16)
[2021-02-15] MEDS: Vitamin THERAPEUTIC TAB PO SCH (08:16)
[2021-02-15] MEDS: diPHENhydraMINE 25 mg TAB PO PRN (20:08)
[2021-02-16] MEDS: Vitamin THERAPEUTIC TAB PO SCH (08:11)
[2021-02-16] MEDS: CMCS: ClomiPRAMINE 25 mg TAB (NF) PO SCH (08:11)
[2021-02-16] MEDS: diPHENhydraMINE 25 mg TAB PO PRN (21:51)
[2021-02-17] MEDS: Vitamin THERAPEUTIC TAB PO SCH (08:23)
[2021-02-17] MEDS ORDERED: FLUVOXAMINE 50 MG PO SCH (09:00)
[2021-02-17] MEDS ORDERED: CLOMIPRAMINE 25 MG PO SCH (09:00)
[2021-02-18] MEDS: Vitamin THERAPEUTIC TAB PO SCH (08:01)
[2021-02-18 08:57] VITALS: BP 116/75
[2021-02-18] MEDS ORDERED: FLUVOXAMINE 50 MG PO SCH (09:00)
== END 2021-02-18 13:00 | disposition home or self-care (01) | DRG 755 ==
LOC: ED 11:24 → BSU 14:45
PROVIDERS: ADMIT Psychiatry & Neurology Psychiatry; ATTEND Psychiatry & Neurology Psychiatry